=== PATIENT | female | born 1980 | race Caucasian/White ===

== ENCOUNTER → 2017-09-02 | Outpatient (CLI) | payer OTHER | LOC: M LAB 11:34 | PROVIDERS: ATTEND Internal Medicine Gastroenterology | DX: R10.12 Left upper quadrant pain (principal) ==

== ENCOUNTER → 2017-09-13 | Outpatient (REF) | payer OTHER ==
[~2017-09-13] MED LIST: ZOFR4TAB3 PO
[2017-09-16 14:14] LABS: O+P EXAM Final report (.)
== END ==
LOC: M LAB REF 09:43
PROVIDERS: ATTEND Internal Medicine Gastroenterology
DX: R10.12 Left upper quadrant pain (principal)

== ENCOUNTER 2017-09-15 14:21 | Emergency (ER) | payer OTHER ==
[~2017-09-15] VITALS: Ht 162.6 cm; Wt 84.1 kg
[2017-09-15] MEDS ORDERED: MORPHINE 4 MG/ML 1ML SYRINGE IV PRN (15:30)
[2017-09-15] MEDS ORDERED: ONDANSETRON 4MG/2ML VIAL (J2405) IV ONE (15:30)
[2017-09-15] MEDS ORDERED: NS 1,000 ML IV ONE (15:30)
[2017-09-15 16:23] LABS: BASO % 0.7 % (0.0-1.0); EOS # 0.2 10^3/uL (0.0-0.50); EOS % 2.8 % (0.0-3.0); IMMATURE GRANULOCYTE % 0.3 % (0-0); LYMPH # 1.7 10^3/uL (1.5-4.5); LYMPH % 27.8 % (24.0-44.0); MEAN CORPUSCULAR HEMOGLOBIN 29.3 pg (27.0-33.0); MEAN CORPUSCULAR HGB CONC 32.8 g/dl (32.0-36.5); MEAN CORPUSCULAR VOLUME 89.1 fl (80.0-96.0); MONO # 0.4 10^3/uL (0.0-0.8); MONO % 6.3 % (0.0-5.0); NEUTROPHILS # 3.8 10^3/uL (1.8-7.7); NEUTROPHILS % 62.1 % (36.0-66.0); PLATELET COUNT, AUTOMATED 206 10^3/uL (150-450); RED CELL DISTRIBUTION WIDTH 12.5 % (11.5-14.5)
[2017-09-15 16:42] LABS: CONTROL LINE UCG INT CTR LINE PRESENT
[2017-09-15 16:43] LABS: ALBUMIN 3.8 GM/DL (3.2-5.2); ALBUMIN/GLOBULIN RATIO 1.12 (1.00-1.93); ALKALINE PHOSPHATASE 57 U/L (45-117); ALT/SGPT 19 U/L (12-78); ANION GAP 6 MEQ/L (8-16); AST/SGOT 8 U/L (7-37); BILIRUBIN,DIRECT 0.1 MG/DL (0.0-0.2); BILIRUBIN,TOTAL 0.5 MG/DL (0.2-1.0); BLOOD UREA NITROGEN 11 MG/DL (7-18); CALCIUM LEVEL 8.8 MG/DL (8.5-10.1); CARBON DIOXIDE LEVEL 29 MEQ/L (21-32); CHLORIDE LEVEL 105 MEQ/L (98-107); CREATININE FOR GFR 0.62 MG/DL (0.55-1.02); GLOMERULAR FILTRATION RATE > 60.0 (>60); GLUCOSE, FASTING 79 MG/DL (70-105); POTASSIUM SERUM 3.8 MEQ/L (3.5-5.1); SODIUM LEVEL 140 MEQ/L (136-145); TOTAL PROTEIN 7.2 GM/DL (6.4-8.2)
[2017-09-15] MEDS ORDERED: ISOVUE-370 76% 100ML VIAL (Q9967) As Ordered ONE (16:47)
--- NOTE | 2017-09-15 17:15 | REP ---
Clinical: Acute abdominal pain. Technique: Axial contrast enhanced images from the lung bases to the pubic symphysis using 100 ml Isovue 370 intravenous contrast material with coronal and sagittal re-formations. Comparison: None. Findings: Lung bases are clear. Visualized heart and pericardium normal. Liver, spleen, pancreas, bilateral adrenal glands and kidneys are normal. Prior cholecystectomy. The enteric system is without obstruction or acute inflammatory process. Pelvis demonstrates normal bladder and age-appropriate uterus/adnexa. No pelvic fluid or ascites. No free air. No adenopathy. Vasculature is normal. Surrounding musculoskeletal structures are intact. Impression: No acute abdominopelvic pathology appreciated. Signed by Manny Blas MD 09/15/2017 05:07 P
[2017-09-15] MEDS ORDERED: ZOFR4TAB3 PO (17:35)
[2017-09-15 17:52] VITALS: BP 129/75
== END 2017-09-15 18:02 | disposition home or self-care (01) ==
LOC: M ED 14:21
DX: R10.9 Unspecified abdominal pain (principal); Z82.49 Family history of ischemic heart disease and other diseases of the circulatory system; F17.290 Nicotine dependence, other tobacco product, uncomplicated; L23.1 Allergic contact dermatitis due to adhesives
CPT/HCPCS: 74177; 80048; 80076; 81001; 83605; 83690; 84703; 85025; 96374; 96375; 99284; J2405; Q9967

== ENCOUNTER 2017-09-23 10:21 | Day surgery (SDC) | payer OTHER ==
[~2017-09-23] VITALS: Ht 162.6 cm; Wt 97.1 kg
[2017-09-23] MEDS ORDERED: NS 1,000 ML IV ONE (11:15)
[2017-09-23] MEDS ORDERED: fentaNYL 100 MCG/2 ML INJECTION (J3010) As Ordered ONE (12:21)
[2017-09-23] MEDS ORDERED: PROPOFOL 200 MG/20 ML VIAL As Ordered ONE ×2 (12:53→12:55)
[2017-09-23] MEDS ORDERED: LIDOCAINE 2% INJ 100 MG/5 ML SDV (FOR ANES.) As Ordered ONE (12:55)
--- NOTE | 2017-09-23 13:24 | ROOR ---
Patient Name: Larisa Kohli Procedure Date: 09/23/2017 12:35 PM Date of : 1980 Age: 36 Room: [facility] Gender: Female Note Status: Finalized Procedure: Upper GI endoscopy Indications: Abdominal pain in the left upper quadrant, Diarrhea, Weight loss Providers: Jani William MD Referring MD: Jesus Porter Requesting Provider: Medicines: Monitored Anesthesia Care Complications: No immediate complications. Procedure: Pre-Anesthesia Assessment: - Prior to the procedure, a History and Physical was performed, and patient medications and allergies were reviewed. The patient is competent. The risks and benefits of the procedure and the sedation options and risks were discussed with the patient. All questions were answered and informed consent was obtained. Patient identification and proposed procedure were verified by the physician, the nurse and the anesthesiologist in the procedure room. Mental Status Examination: alert and oriented. Airway Examination: normal oropharyngeal airway and neck mobility. Respiratory Examination: clear to auscultation. CV Examination: normal. Prophylactic Antibiotics: The patient does not require prophylactic antibiotics. Prior Anticoagulants: The patient has taken no previous anticoagulant or antiplatelet agents. ASA Grade Assessment: II - A patient with mild systemic disease. After reviewing the risks and benefits, the patient was deemed in satisfactory condition to undergo the procedure. The anesthesia plan was to use monitored anesthesia care (MAC). Immediately prior to administration of medications, the patient was re-assessed for adequacy to receive sedatives. The heart rate, respiratory rate, oxygen saturations, blood pressure, adequacy of pulmonary ventilation, and response to care were monitored throughout the procedure. The physical status of the patient was re-assessed after the procedure. The Endoscope was introduced through the mouth, and advanced to the second part of duodenum. The upper GI endoscopy was accomplished without difficulty. The patient tolerated the procedure well. Findings: The examined esophagus was normal. Striped mildly erythematous mucosa without bleeding was found in the gastric antrum. Biopsies were taken with a cold forceps for Helicobacter pylori testing. Verification of patient identification for the specimen was done by the physician and nurse using the patient's name, date and medical record number. Estimated blood loss was minimal. The duodenal bulb and second portion of the duodenum were normal. Biopsies for histology were taken with a cold forceps for evaluation of celiac disease. Impression: - Normal esophagus. - Erythematous mucosa in the antrum. Biopsied. - Normal duodenal bulb and second portion of the duodenum. Biopsied. Recommendation: - Patient has a contact number available for emergencies. The signs and symptoms of potential delayed complications were discussed with the patient. Return to normal activities tomorrow. Written discharge instructions were provided to the patient. - Resume previous diet. - Continue present medications. - Await pathology results. - Return to GI clinic as previously scheduled on 09/30/2017 at 11:15 AM. - Return to primary care physician. Jani William MD Jani William MD 09/23/2017 1:23:55 PM This report has been signed electronically. Number of Addenda: 0 Note Initiated On: 09/23/2017 12:35 PM Estimated Blood Loss: Estimated blood loss was minimal.
[2017-09-23 13:30] VITALS: BP 154/84
--- NOTE | 2017-09-23 13:55 | ROOR ---
Patient Name: Larisa Kohli Procedure Date: 09/23/2017 12:35 PM Date of : 1980 Age: 36 Room: [facility] Gender: Female Note Status: Finalized Procedure: Colonoscopy Indications: Chronic diarrhea, Weight loss Providers: Jani William MD Referring MD: Jesus Porter Requesting Provider: Medicines: Monitored Anesthesia Care Complications: No immediate complications. Procedure: Pre-Anesthesia Assessment: - Prior to the procedure, a History and Physical was performed, and patient medications and allergies were reviewed. The patient is competent. The risks and benefits of the procedure and the sedation options and risks were discussed with the patient. All questions were answered and informed consent was obtained. Patient identification and proposed procedure were verified by the physician, the nurse and the anesthesiologist in the procedure room. Mental Status Examination: alert and oriented. Airway Examination: normal oropharyngeal airway and neck mobility. Respiratory Examination: clear to auscultation. CV Examination: normal. Prophylactic Antibiotics: The patient does not require prophylactic antibiotics. Prior Anticoagulants: The patient has taken no previous anticoagulant or antiplatelet agents. ASA Grade Assessment: II - A patient with mild systemic disease. After reviewing the risks and benefits, the patient was deemed in satisfactory condition to undergo the procedure. The anesthesia plan was to use moderate sedation / analgesia (conscious sedation). Immediately prior to administration of medications, the patient was re-assessed for adequacy to receive sedatives. The heart rate, respiratory rate, oxygen saturations, blood pressure, adequacy of pulmonary ventilation, and response to care were monitored throughout the procedure. The physical status of the patient was re-assessed after the procedure. The Colonoscope was introduced through the anus and advanced to the terminal ileum, with identification of the appendiceal orifice and IC valve. The colonoscopy was performed without difficulty. The patient tolerated the procedure well. The quality of the bowel preparation was good. The terminal ileum, ileocecal valve, appendiceal orifice, and rectum were photographed. Scope insertion time was 3 minutes. Scope withdrawal time was 9 minutes. The total duration of the procedure was 12 minutes. Findings: The perianal and digital rectal examinations were normal. The terminal ileum appeared normal. Normal mucosa was found in the entire colon. Biopsies for histology were taken with a cold forceps from the right colon, left colon, transverse colon and rectum for evaluation of microscopic colitis. Verification of patient identification for the specimen was done by the physician and nurse using the patient's name, date and medical record number. Non-bleeding external and internal hemorrhoids were found during retroflexion. The hemorrhoids were medium-sized. Impression: - The examined portion of the ileum was normal. - Normal mucosa in the entire examined colon. Biopsied. - Non-bleeding external and internal hemorrhoids. Recommendation: - Patient has a contact number available for emergencies. The signs and symptoms of potential delayed complications were discussed with the patient. Return to normal activities tomorrow. Written discharge instructions were provided to the patient. - Resume previous diet. - Continue present medications. - Await pathology results. - Repeat colonoscopy at age 52 for screening purposes. - Return to GI clinic as previously scheduled on 09/30/2017 at 11:15 AM. - Return to primary care physician. Jani William MD Jani William MD 09/23/2017 1:55:20 PM This report has been signed electronically. Number of Addenda: 0 Note Initiated On: 09/23/2017 12:35 PM Estimated Blood Loss: Estimated blood loss was minimal.
== END 2017-09-23 13:44 | disposition home or self-care (01) ==
LOC: M OPP 10:21
PROVIDERS: ATTEND Internal Medicine Gastroenterology
DX: K52.9 Noninfective gastroenteritis and colitis, unspecified (principal); R63.4 Abnormal weight loss; K64.8 Other hemorrhoids; K64.4 Residual hemorrhoidal skin tags; R10.12 Left upper quadrant pain; K31.89 Other diseases of stomach and duodenum; Z91.89 Other specified personal risk factors, not elsewhere classified
CPT/HCPCS: 43239; 45380; 88305; J3010

== ENCOUNTER 2017-09-25 10:12 | Emergency (ER) | payer OTHER ==
[~2017-09-25] VITALS: Ht 162.6 cm; Wt 90.9 kg
[2017-09-25 11:49] LABS: BASO % 0.5 % (0.0-1.0); EOS # 0.2 10^3/uL (0.0-0.50); EOS % 2.5 % (0.0-3.0); IMMATURE GRANULOCYTE % 0.5 % (0-0); LYMPH # 1.6 10^3/uL (1.5-4.5); LYMPH % 26.5 % (24.0-44.0); MEAN CORPUSCULAR HGB CONC 32.7 g/dl (32.0-36.5); MEAN CORPUSCULAR VOLUME 88.5 fl (80.0-96.0); MONO # 0.4 10^3/uL (0.0-0.8); MONO % 6.7 % (0.0-5.0); NEUTROPHILS # 3.8 10^3/uL (1.8-7.7); NEUTROPHILS % 63.3 % (36.0-66.0); PLATELET COUNT, AUTOMATED 207 10^3/uL (150-450); RED CELL DISTRIBUTION WIDTH 12.6 % (11.5-14.5)
[2017-09-25 12:19] LABS: ALBUMIN 3.6 GM/DL (3.2-5.2); ALKALINE PHOSPHATASE 60 U/L (45-117); ALT/SGPT 16 U/L (12-78); ANION GAP 7 MEQ/L (8-16); AST/SGOT 11 U/L (7-37); BILIRUBIN,TOTAL 0.3 MG/DL (0.2-1.0); BLOOD UREA NITROGEN 9 MG/DL (7-18); CALCIUM LEVEL 8.4 MG/DL (8.5-10.1); CARBON DIOXIDE LEVEL 25 MEQ/L (21-32); CHLORIDE LEVEL 108 MEQ/L (98-107); CREATININE FOR GFR 0.68 MG/DL (0.55-1.02); GLOMERULAR FILTRATION RATE > 60.0 (>60); GLUCOSE, FASTING 96 MG/DL (70-105); POTASSIUM SERUM 4.1 MEQ/L (3.5-5.1); SODIUM LEVEL 140 MEQ/L (136-145); TOTAL PROTEIN 7.2 GM/DL (6.4-8.2)
--- NOTE | 2017-09-25 12:24 | REP ---
LIMITED FOUR QUADRANT ABDOMINAL ULTRASOUND, ASSESS FOR FREE FLUID: Limited abdominal ultrasound shows no free fluid. Signed by Ruben Jeffrey DO 09/25/2017 02:17 P
[2017-09-25 13:08] VITALS: BP 170/96
== END 2017-09-25 13:13 | disposition home or self-care (01) ==
LOC: M ED 10:12
DX: Z53.21 Procedure and treatment not carried out due to patient leaving prior to being seen by health care provider (principal)

== ENCOUNTER 2018-07-04 12:44 | Emergency (ER) | payer OTHER ==
[2018-07-04 17:10] LABS: CHLAMYDIA DNA AMPLIFICATION NEGATIVE (NEGATIVE); GC DNA AMPLIFICATION NEGATIVE (NEGATIVE)
[2018-07-05 10:21] LABS: HEPATITIS C VIRUS ABY INDEX 0.1 INDEX (<0.8)
[2018-07-05 10:21] LABS: HEPATITIS B SURFACE ANTIBODY NEGATIVE (POSITIVE); HEPATITIS B SURFACE ANTIGEN NEGATIVE (NEGATIVE); HIV 1&2 SCREEN CENTAUR NEGATIVE (NEGATIVE)
[2018-07-07 00:07] LABS: HSV IgM TYPES 1&2 1.17 Ratio (0.00-0.90)
== END 2018-07-04 15:42 | disposition home or self-care (01) ==
LOC: M ED 12:44
DX: Z20.2 Contact with and (suspected) exposure to infections with a predominantly sexual mode of transmission (principal)
CPT/HCPCS: 86706

== ENCOUNTER → 2024-06-23 | Outpatient (CLI) | payer OTHER ==
[~2024-06-23] MED LIST changes: +HYDR50CA2; +ONDA-282; +ZOFR4TAB14 PO; -ZOFR4TAB3 PO
== END ==
LOC: M RAD 12:31
PROVIDERS: ATTEND Student in an Organized Health Care Education/Training Program
DX: M54.16 Radiculopathy, lumbar region (principal)

== ENCOUNTER → 2024-07-20 | Outpatient (REF) ==
[2024-07-20 14:04] LABS: COLLAGEN EPINEPHRINE 145 SECONDS (74-162)
== END ==
LOC: M LAB REF 13:29
PROVIDERS: ATTEND Student in an Organized Health Care Education/Training Program
DX: Z00.00 Encounter for general adult medical examination without abnormal findings (principal)

== ENCOUNTER 2024-10-03 19:26 | Emergency (ER) | payer OTHER ==
[~2024-10-03] VITALS: Ht 162.6 cm; Wt 107.2 kg
[2024-10-03 20:14] LABS: HEMATOCRIT 40.3 % (36.0-47.0); HEMOGLOBIN 13.4 g/dl (12.0-15.5); MEAN CORPUSCULAR HEMOGLOBIN 28.5 pg (27.0-33.0); MEAN CORPUSCULAR HGB CONC 33.3 g/dl (32.0-36.5); MEAN CORPUSCULAR VOLUME 85.7 fl (80.0-96.0); PLATELET COUNT, AUTOMATED 247 10^3/uL (150-450); WHITE BLOOD COUNT 9.2 10^3/uL (4.0-10.0)
[2024-10-03] MEDS ORDERED: LABE100T40 PO (20:32)
[2024-10-03 20:35] LABS: ETHYL ALCOHOL (ETHANOL) < 0.003 % (0.000-0.010); HCG, SERUM QUALITATIVE NEGATIVE (NEGATIVE)
[2024-10-03 20:36] LABS: SALICYLATE LEVEL < 3.0 MG/DL (<30)
[2024-10-03 20:37] LABS: ALBUMIN 3.8 G/DL (3.2-5.2); ALKALINE PHOSPHATASE 76 U/L (35-104); ALT/SGPT 31 U/L (7.0-40); AST/SGOT 21 U/L (<34); BILIRUBIN,DIRECT 0.2 MG/DL (<0.4); BILIRUBIN,TOTAL 0.5 MG/DL (0.3-1.2); BLOOD UREA NITROGEN 12 MG/DL (9-23); CALCIUM LEVEL 9.5 MG/DL (8.5-10.1); CARBON DIOXIDE LEVEL 25 MMOL/L (20-31); CHLORIDE LEVEL 107 MMOL/L (98-107); CREATININE FOR GFR 0.63 MG/DL (0.55-1.30); GLOMERULAR FILTRATION RATE > 60.0 (>58); GLUCOSE, FASTING 103 MG/DL (60-100); POTASSIUM SERUM 4.1 MMOL/L (3.5-5.1); SODIUM LEVEL 142 MMOL/L (136-145); TOTAL PROTEIN 6.8 G/DL (5.7-8.2)
[2024-10-03] MEDS ORDERED: SIMV10TA21 PO (20:37)
[2024-10-03] MEDS ORDERED: GABA-1171 PO (20:37)
[2024-10-03] MEDS ORDERED: LABE200T5 PO (20:37)
[2024-10-03] MEDS ORDERED: MED REC COMMENT (20:38)
[2024-10-03 20:39] LABS: THYROID STIMULATING HORMONE 1.233 uIU/ML (0.55-4.78)
[2024-10-03 20:45] LABS: AMPHETAMINES LEVEL URINE NEGATIVE (NEGATIVE); BARBITURATES URINE NEGATIVE (NEGATIVE); BENZODIAZEPINES URINE NEGATIVE (NEGATIVE); COCAINE METABOLITE URINE NEGATIVE (NEGATIVE); METHADONE URINE NEGATIVE (NEGATIVE); OPIATES URINE NEGATIVE (NEGATIVE); PHENCYCLIDINE URINE NEGATIVE (NEGATIVE)
[2024-10-03 20:46] LABS: CANNABINOIDS URINE POSITIVE (NEGATIVE)
[2024-10-03] MEDS: SIMVASTATIN 10 MG TAB PO ONE (21:37)
[2024-10-03] MEDS: GABAPENTIN 100 MG CAP PO ONE (21:37)
[2024-10-03 21:38] VITALS: BP 159/83
[2024-10-03] MEDS: LABETALOL 100MG TAB PO ONE (21:38)
[2024-10-03] MEDS ORDERED: MED REC CURRENTLY UNOBTAINABLE XX SCH (21:55)
[2024-10-03 23:30] VITALS: BP 175/85; TEMP 96.9; O2SAT 98
== END 2024-10-03 23:32 | disposition home or self-care (01) ==
LOC: M ED 19:26
DX: Z13.30 Encounter for screening examination for mental health and behavioral disorders, unspecified (principal); I10 Essential (primary) hypertension; K52.9 Noninfective gastroenteritis and colitis, unspecified; N80.9 Endometriosis, unspecified; M48.00 Spinal stenosis, site unspecified; M16.10 Unilateral primary osteoarthritis, unspecified hip; Z87.891 Personal history of nicotine dependence; Z91.89 Other specified personal risk factors, not elsewhere classified; Z88.8 Allergy status to other drugs, medicaments and biological substances